=== PATIENT | female | born 1995 | race Hispanic/Latino ===

== ENCOUNTER 2024-08-06 05:14 | Emergency (ER) | payer MEDICAID, SELFPAY ==
[2024-08-06 05:17] VITALS: BP 119/86; PULSE 53; RESP 22; TEMP 36.6; O2SAT 100; BMI 19.0
--- NOTE | 2024-08-06 05:25 | EX.ED.DYSGE1 ---
HPI History of Present Illness Chief Complaint: Nausea/Vomiting Informant: patient and spouse/S.O. Narrative Narrative: Patient is symptomatic for just over 48 hours with cough, fevers, chills, myalgias. For the past 10 or 12 hours she has been vomiting every time she tries to drink something, including when she tries to take some type of liquid prescription she was given. states everyone in the house has tested positive for influenza within the past 24 hours and they presume she has the same. Healthy otherwise not . She states vomiting started first followed by abdominal soreness due to the vomiting. No prior abdominal surgeries. PFSH PFSH Medical History no medical history no medical history Home Medications ?Medication ?Instructions ?Recorded ?Last Taken ?Type dicyclomine 10 mg capsule 20 mg (2 x 10 mg) PO Q6H PRN PRN 08/06/24 Unknown Rx abdominal discomfort #12 CAPSULES ondansetron 8 mg disintegrating 8 mg PO Q8H PRN nausea and 08/06/24 Unknown Rx tablet vomiting #15 tabs Allergy/AdvReac Type Severity Reaction Status Date / Time No Known Allergies Allergy Verified 08/06/24 05:16 Family History no significant family his Surgical History no surgical history no surgical history Social History Smoking Status: Never smoker ROS ROS ED Constitutional Constitutional ED: Reports body ache(s), chills, fever(s) and malaise Eyes Eyes: Denies change in vision or diplopia ENT ENT ED: Reports rhinorrhea; Denies ear pain or sore throat Cardiovascular Cardiovascular: Denies chest pain or palpitations Respiratory/Chest Respiratory/Chest: Reports cough; Denies dyspnea Gastrointestinal Gastrointestinal: Reports abdominal pain, nausea and vomiting; Denies diarrhea Genitourinary Genitourinary ED: Denies dysuria or hematuria Musculoskeletal Musculoskeletal: Reports myalgias; Denies back pain or neck pain Integumentary Denies abscess or rash Neurologic Neurologic: Denies paresthesias or weakness EXAM Physical Exam Const Vital Signs: 08/06/24 05:17 Temperature 97.8 F Temperature Source Oral Pulse Rate 53 L Respiratory Rate 22 H Blood Pressure 119/86 H Blood Pressure Mean 97 Pulse Ox 100 Oxygen Delivery Method Room Air Positive well nourished and well developed Constitutional Narrative: Anxious, agitated, moaning in discomfort complaining of myalgias everywhere General Appearance ED: well developed HEENT Reports moist mucous membranes normocephalic and atraumatic Eyes PERRL and EOMs intact bilaterally Neck full ROM, no lymphadenopathy and supple Resp normal respiratory effort and clear to auscultation bilaterally Cardio regular rate, regular rhythm and no murmurs GI non-distended GI Narrative: Diffuse subjective tenderness no distention Auscultation: normoactive bowel sounds Palpation: soft; Negative for guarding or rebound tenderness present Back/Spine no CVA tenderness General Back: other FROM Extremity normal to inspection Extremity Narrative: Muscle spasms present in fingers General Extremety ED: Negative for edema, pulses abnormal or tenderness General Extremity: Negative for edema or pulses abnormal Neuro oriented x3, CN's II-XII intact bilaterally and no sensory deficits noted Sensorium / Orientation: awake and alert Motor Exam: strength 5/5 throughout Psych Attitude: agitated Mood & Affect: anxious Skin no rashes or lesions noted and no wounds MDM MDM MDM Narrative Medical decision making narrative: Patient was hyperventilating, likely contributing to her finger/carpal spasms, I did run her a chemistry panel to check electrolytes to ensure she was not significantly hypokalemic, I reviewed this, her potassium level is 3.7 which is normal, her bicarb is down a little with a normal anion gap consistent with hyperventilation, which she was probably doing for some time. With IV fluids, Zofran, Toradol she is feeling better and her spasms are resolved. She is tolerating oral fluids. She still having some sharp abdominal pains for which she will be given an oral dicyclomine, supportive care advised, they are comfortable with going home and prescriptions for Zofran and dicyclomine to use as needed. Discharge Plan Triage Chief Complaint: Nausea/Vomiting ED Provider: Alejandro Le Dx/Rx/DC Orders Clinical Impression: Influenza-like illness, Vomiting Instructions: ED Influenza (Adult), ED Vomiting (Adult) Prescriptions: New ondansetron 8 mg tablet,disintegrating 8 mg PO Q8H PRN (Reason: nausea and vomiting) Qty: 15 0RF dicyclomine 10 mg capsule 20 mg PO Q6H PRN PRN (Reason: abdominal discomfort) Qty: 12 0RF Primary Care Provider: Care Physician,No Primary Referrals: Deborah Pompa MD [Med Staff - [employer] [facility]] - As Needed Print Language: Slovenian Disposition Disposition: Home, Self Care
[2024-08-06] MEDS: Ondansetron 4 MG/2 ML Vial IV (05:34)
[2024-08-06] MEDS: Ketorolac 30 MG/ML Syringe IV (05:34)
[2024-08-06] MEDS: 0.9% Normal Saline (1000mL) 1,000 ML 999 ML IV (05:35)
[2024-08-06 06:13] LABS: Internal QC Validated? YES +Cl - CLEAR BKGD; Pregnancy, Serum, hCG Quali. NEGATIVE Negative
[2024-08-06 06:18] LABS: Anion Gap 14 (5-15); BUN 11 mg/dL (7-18); BUN/Creat Ratio 9.2 RATIO (10-20); Calcium,Total 9.5 mg/dL (8.5-10.1); Chloride 106 mmol/L (98-107); EST Glomerular Filtration Rate 57 mL/min (>60); Est Glom Filt Rate - Afr Amer 69 mL/min (>60); Estimated Creatinine Clearance 66.92 ml/min; Glucose 195 mg/dL (74-106); Potassium 3.7 mmol/L (3.5-5.1); Sodium Level 139 mmol/L (136-145)
[2024-08-06 06:42] VITALS: BP 116/59; PULSE 51; RESP 18; TEMP 36.7; O2SAT 100
[2024-08-06] MEDS: Metoclopramide 10 MG/2 ML Vial 5 MG IV (06:47)
[2024-08-06] MEDS: Dicyclomine 10 MG Capsule 20 MG PO (07:21)
== END 2024-08-06 07:54 | disposition home or self-care (01) ==
PROVIDERS: Emergency Provider Emergency Medicine; Visit Provider Emergency Medicine
DX: J11.1 Influenza due to unidentified influenza virus with other respiratory manifestations (principal)
CPT/HCPCS: 80048; 84703; 96361; 96374; 96375; 99283; A4216; J2405

== ENCOUNTER 2024-10-21 17:11 | Emergency (ER) | payer MEDICAID, SELFPAY ==
[2024-10-21 17:11] VITALS: BP 104/63; PULSE 94; RESP 14; TEMP 36.6; O2SAT 100; BMI 21.2
--- NOTE | 2024-10-21 20:05 | EX.ED.DYSGE1 ---
HPI History of Present Illness Chief Complaint: Ear Problem PFSH [facility] Home Medications ?Medication ?Instructions ?Recorded ?Last Taken ?Type NK 10/21/24 Unknown History Allergy/AdvReac Type Severity Reaction Status Date / Time No Known Allergies Allergy Verified 10/21/24 17:11 Social History Smoking Status: Never smoker EXAM Physical Exam Const Vital Signs: 10/21/24 17:11 10/21/24 20:38 Temperature 98 F 97.5 F L Temperature Source Temporal Pulse Rate 94 81 Respiratory Rate 14 16 Blood Pressure 104/63 102/59 L Blood Pressure Mean 76 73 Pulse Ox 100 99 Oxygen Delivery Method Room Air [facility] Narrative Medical decision making narrative: HISTORY OF PRESENT ILLNESS: Chief complaint: Pain behind left 29-year-old female presents with pain behind left ear. Notes she has had the symptoms before they typically go away. She notes this began yesterday. Patient denies take any Tylenol ibuprofen. No she has had this before and is gone away spontaneously. REVIEW OF SYSTEMS: Pertinent positives: Pain behind left ear Pertinent negatives: Fever PHYSICAL EXAM: Nursing triage notes reviewed, Vital signs reviewed Constitutional: please see mdm HENT: MMM,no overlying skin changes noted. No mastoid tenderness. Eyes: Pupils equal round and reactive to light, Extraocular muscles intact Neck: No stridor, no JVD, full neck ROM, lymphadenopathy noted along the occipital/postauricular lymph nodes, Lungs: Clear to auscultation, No wheezing or rales. No increased work of breathing, no conversational dyspnea, no accessory muscle use, no nasal flaring. No respiratory distress noted Heart: Regular rate and rhythm, No murmurs, No rubs and No gallops, 2+ distal pulses (radial, femoral, posterior tibial) in all extremities Skin: No rash or lesions noted, no rash MEDICAL DECISION MAKING: Chief Complaint: please see HPI External records reviewed: Reviewed prior imaging studies Factors affecting care: none Social determinants of health: none History obtained from others: none Consults: none [facility] Narrative: The patient was initially hemodynamically stable, afebrile and nontoxic-appearing. Exam consistent with lymphadenopathy I considered the following differential diagnosis: Mastoiditis, cellulitis, lymphadenopathy Exam most consistent with lymphadenopathy Recommended Tylenol and ibuprofen. Recommended close monitoring for resolution. If symptoms do not resolve in 14 days recommended getting imaging as an outpatient or return to the ED if necessary. The patient and/or family, caregivers express understanding. The patient and/or family, caregivers agrees with the plan. Shared decision making: I will have a discussion with the patient and or visitors regarding risk/benefits of further testing or admission. They will be made aware of of the risk/benefits inherent in this decision they will be given the opportunity to voice understanding. Total critical care time today provided was at least 0 minutes. This excludes separately billable procedures. Critical care time (if documented) is secondary to the patient having high probability of clinically significant/life threatening deterioration in the patient's condition which required my urgent intervention. Impression: 1. Lymphadenopathy Dispo: Discharge home This note was generated with [employer] dictation software. It may contain incorrect words, spelling, and punctuation that were not noted in review of the chart prior to signing. Discharge Plan Triage Chief Complaint: Ear Problem ED Provider: Dwight Abreu Dx/Rx/DC Orders Instructions: Lymphadenopathy Prescriptions: No Action NK Primary Care Provider: Care Physician,Rachele Primary Referrals: Micah Clifford MD [Med Staff - Active Staff] - Activity Restrictions/Additional Instructions: Thank you for trusting us with your care today! Your exam is consistent with lymphadenopathy. This is swelling of a lymph node. It can be due to multiple causes sometimes spontaneous sometimes infectious. There is no sign of infection on your exam. Please take Tylenol (2 pills, 650 mg), ibuprofen (2 pills, 400 mg) every 6 hours as needed for pain and fever control. Please return to the emergency department if your symptoms change or worsen. Specifically if your symptoms not resolve within the next 14 days. Please follow with your primary care physician for further outpatient evaluation and management. Print Language: Kiswahili Disposition Disposition: Home, Self Care Discharge Date/Time: 10/21/24 20:38
[2024-10-21 20:38] VITALS: BP 102/59; PULSE 81; RESP 16; TEMP 36.4; O2SAT 99
== END 2024-10-21 20:38 | disposition home or self-care (01) ==
PROVIDERS: Emergency Provider Emergency Medicine; Visit Provider Emergency Medicine
DX: R59.0 Localized enlarged lymph nodes (principal)
CPT/HCPCS: 99282